=== PATIENT | male | born 1950 | race African-American/Black ===

== ENCOUNTER 2019-10-10 12:29 | Emergency (ER) | payer MEDICARE, SELFPAY ==
[2019-10-10 12:34] VITALS: BP 122/76; PULSE 80; RESP 20; TEMP 36.3; O2SAT 100
--- NOTE | 2019-10-10 12:55 | ED.ALLEREA ---
HPI - Allergic Reaction General Chief complaint: Allergic Reaction Stated complaint: rash Time Seen by Provider: 10/10/19 12:32 Source: patient Mode of arrival: ambulatory Limitations: no limitations History of Present Illness HPI narrative: Patient presents with chief complaint of pruritic rash to his torso and buttocks. Patient states that a few weeks ago he had a large reaction to a new cologne along his neckline and he was prescribed triamcinolone and mupirocin and that rash resolved. Patient states a few days ago he noticed a rash to the front and back of his torso and upper buttocks. Patient states that his did change the sheets on the bed a few days prior to him noticing the rash. He is unsure if she has changed his detergent. Patient denies any involvement of his mouth or throat. Patient denies any chest pain, shortness of breath, pain. Patient states the rash is. It. Patient has no discharge from the areas. Patient states that he is out of triamcinolone and mupirocin. Patient is wondering if we can perform allergy testing in emergency department to see what is causing his symptoms. Patient denies diabetes, cardiac dysfunction, fevers, chills or any other symptoms. Related Data Home Medications Medication Instructions Recorded Confirmed atorvastatin 40 mg tablet 40 mg PO DAILY 08/09/19 fluoxetine 20 mg capsule 40 mg PO DAILY cap 08/09/19 multivitamin 1 tablet PO DAILY 08/09/19 niacin 500 mg tablet 500 mg PO TID tablet 08/09/19 tadalafil 5 mg tablet 5 mg PO DAILY 08/09/19 trazodone 50 mg tablet 50 mg PO .QHS tablet 08/09/19 Allergies Allergy/AdvReac Type Severity Reaction Status Date / Time No Known Allergies Allergy Verified 08/09/19 08:00 Review of Systems Review of Systems: Narrative: CONSTITUTIONAL: Denies fever, chills, or sweats. EYES: Denies visual changes, redness, or discharge. ENT: Denies rhinorrhea, congestion, sore throat, or otalgia. CARDIOVASCULAR: Denies chest pain, palpitations, or edema. RESPIRATORY: Denies cough or dyspnea. GASTROINTESTINAL: Denies abdominal pain, nausea, vomiting, or diarrhea. GENITOURINARY: Denies dysuria or hematuria. SKIN: Reports rash and itching. MUSCULOSKELETAL: Denies back pain, joint pain, or myalgia. NEUROLOGIC: Denies headache, numbness, dizziness, or weakness. PSYCHIATRIC: Denies anxiety or depression. [facility] Social History Social History Smoking status: Current every day smoker Second hand tobacco smoke exposure: Yes Alcohol intake: current Gender identity (if verbalized by the patient): Male Exam Narrative: Exam Narrative: GENERAL: Well-appearing, well-nourished, and in no acute distress. HEAD: Normocephalic, atraumatic. EYES: PERRLA and EOMI. ENT: Nares clear, no rhinorrhea or epistaxis. Mucous membranes moist. Oropharynx without tonsillar hypertrophy exudate or other lesions. Bilateral TMs pearly mendoza nonbulging. No hives, erythema or sign of irritation to oropharynx. NECK: Supple. No adenopathy or masses. ROM intact CHEST: Clear to auscultation. No respiratory distress. No wheezes rales or rhonchi HEART: Regular rate and rhythm. No murmur heard. Normal peripheral pulses. EXTREMITIES: Normal range of motion. No edema. SKIN: Warm, dry, contact dermatitis- red raised papule clusters to the front and back of patients torso and buttocks.Small area noted to right and left leg. No weeping or discharge. No sign of cellulitis or abcess. Excoriations noted to a few areas. NEURO: No focal deficits. Alert and oriented x3. PSYCH: Normal mood and affect. Course Vital Signs Vital signs: Vital Signs Temperature 97.3 F L 10/10/19 12:34 Pulse Rate 80 10/10/19 12:34 Respiratory Rate 20 10/10/19 12:34 Blood Pressure 122/76 10/10/19 12:34 Pulse Oximetry 100 10/10/19 12:34 Temperature 97.3 F L 10/10/19 12:34 Pulse Rate 80 10/10/19 12:34 Respiratory Rate 20
== END 2019-10-10 13:08 | disposition home or self-care (01) ==
PROVIDERS: Emergency Provider Emergency Medicine; PCP Family Medicine
DX: L23.5 Allergic contact dermatitis due to other chemical products (principal); F17.210 Nicotine dependence, cigarettes, uncomplicated
CPT/HCPCS: 99283

== ENCOUNTER 2020-02-28 09:14 | Emergency (ER) | payer MEDICARE, SELFPAY ==
[2020-02-28] VITALS (14 sets, daily range): BP systolic 123–154; BP diastolic 82–105; PULSE 57–118; RESP 11–34; TEMP 36.4; O2SAT 93–100
--- NOTE | ~2020-02-28 | XR_ITS ---
EXAMINATION: XR chest 2V EXAM DATE: 02/28/2020 10:04 INDICATION: Shortness of air. TECHNIQUE: Frontal and lateral projections of the chest obtained and reviewed. There is no prior abrahan dy for comparison. FINDINGS: The lungs are clear. There are no pleural effusions. The cardiomediastinal silhouette is within normal limits. There is no pneumothorax suspected. The bones and soft tissues are unremarkab le. IMPRESSION: Normal chest x-ray exam. Reviewed, dictated and finalized at location B. IMPRESSION: Normal chest x-ray exam.
--- NOTE | ~2020-02-28 | US_ITS ---
EXAMINATION: US venous doppler [facility] DATE: 02/28/2020 12:27 INDICATION: Cramping. Lower limb pain. Shortness of breath and acute pulmonary emboli. TECHNIQUE: Grayscale ultrasound images without and with compression and Doppler ultrasound images of the bilateral lower extremity veins were obtained. COMPARISON: None. FINDINGS: Occlusive appearing noncompressible deep venous thrombosis in the mid to distal right femoral vein ex tending to the popliteal vein and gastrocnemius vein. The visualized portions of right common femoral vein, profunda (deep) femoral vein, proximal femoral vein, posterior tibial veins, peroneal veins an d greater saphenous vein outflow are patent. The visualized portions of left common femoral vein, profunda femoral vein, femoral vein, popliteal v ein, posterior tibial veins, peroneal veins, gastrocnemius vein and greater saphenous vein outflow ar e patent. IMPRESSION: 1. Above and below the knee deep venous thrombosis in the right lower limb extending from the mid fe moral vein through the gastrocnemius vein. 2. No deep venous thrombosis in the left lower limb. Reviewed, dictated and finalized at location A. IMPRESSION: 1. Above and below the knee deep venous thrombosis in the right lower limb ext ending from the mid femoral vein through the gastrocnemius vein. 2. No deep venous thrombosis in the left lower limb.
--- NOTE | ~2020-02-28 | CT_ITS ---
EXAMINATION: CTA chest PE protocol DATE: 02/28/2020 11:51 INDICATION: Shortness of breath. Hyperventilating. Elevated d-dimer. TECHNIQUE: Computed tomography (CT) pulmonary angiogram of the chest was performed with 100 mL Omnipa que-350 intravenous contrast. Additional 3D reconstructions utilizing coronal maximum intensity proje ction (MIP) were performed. Automated exposure control and iterative reconstruction technique were em ployed. The dose-length product was 409.95 mGy-cm. COMPARISON: 10/28/2010 FINDINGS: Excellent contrast opacification of the pulmonary arteries. There is mild streak artifact from dense contrast in the superior vena cava and right atrium. Mild scattered respiratory motion artifact which does not significantly limit evaluation. Sense of bilateral pulmonary emboli. This includes occlusiv e thrombus filling the left lower lobar pulmonary artery with no contrast opacification of any of the more peripheral left lower lobar pulmonary arteries. Additional thrombus involving multiple segmenta l and subsegmental pulmonary arteries of the remaining pulmonary lobes. There is associated right hea rt strain with right ventricular enlargement and leftward bowing of the ventricular septum. There is also tricuspid regurgitation with reflux of contrast into the inferior vena cava and right hepatic ve in. Mild biapical emphysema. Scattered peripheral atelectasis in the dependent aspect of the bilatera l upper and lower lobes. No pneumonia, pulmonary edema or pleural effusion. Overall heart size remain s normal. No pericardial effusion. There is chronic coronary artery calcifications. Thoracic aorta is normal in caliber with no dissection. No pathologically enlarged thoracic lymphadenopathy. Small sli ding-type hiatal hernia densities along side a small parenchymal defect at the upper pole of the left kidney suggesting prior partial nephrectomy. Visualized upper abdomen is otherwise unremarkable. Mil d thoracic spondylosis. IMPRESSION: 1. Extensive pulmonary embolism with high clot burden and secondary right heart strain. Dr. Barrios discussed these findings with Dr. Mariee at 11:58 PM. Reviewed, dictated and finalized at location A.
[2020-02-28 10:24] LABS: Basophils Percent Auto 0.6 % (0.2-1.2); Eosinophils Absolute Auto 0.1 K/mm3 (0-0.3); Hematocrit 48.7 % (42.0-52.0); Hemoglobin 17.2 g/dL (14.0-18.0); Immature Granulocyte Absolute 0.03 K/mm3 (0.00-0.031); Immature Granulocyte Percent A 0.6 % (0-0.5); Lymphocytes Absolute Auto 0.97 K/mm3 (0.9-3.2); Lymphocytes Percent Auto 19.2 % (18.3-44.2); Mean Corpuscular HGB Conc 35.3 g/dl (32-36); Mean Corpuscular Volume 93.5 fl (80-100); Monocytes Absolute Auto 0.7 K/mm3 (0.1-0.6); Monocytes Percent Auto 14.7 % (2.6-8.5); Neutrophils Absolute Auto 3.2 K/mm3 (1.3-6.7); Neutrophils Percent Auto 62.9 % (45.5-73.1); Platelet Count Result 218 k/mm3 (150-375); Red Blood Count 5.21 M/mm3 (4.6-6.20); Red Cell Distribution Width 12.9 % (11.5-14.5)
[2020-02-28 10:37] LABS: Blood Urea Nitrogen 10 mg/dL (9-20); Calcium 9.3 mg/dL (8.4-10.2); Carbon Dioxide 23 mmol/L (22-30); Chloride 104 mmol/L (98-107); Estimated CRCL calculation 66 ml/min; Estimated Glomerular Filt Rate > 60; Glucose 118 mg/dL (75-110); Potassium 4.2 mmol/L (3.4-5.0); Sodium 134 mmol/L (137-145)
[2020-02-28 10:51] LABS: D Dimer 9.74 ug/mL (<0.48)
--- NOTE | 2020-02-28 11:59 | ED.GENADULT ---
HPI - General Adult General Chief complaint: Anxiety Stated complaint: low temperature, hyperventilating Time Seen by Provider: 02/28/20 09:26 History of Present Illness HPI narrative: Patient is a 69-year-old male who presents the ER with shortness of breath. Patient reports that for the last couple weeks he has been short of breath when he gets anxious and upset. But he is also been short of breath with going up stairs over the last day. No chest pain or chest pressure. Reports right lower extremity cramping in the calf starting yesterday. Has history of DVT from a surgery in 2010. No additional complaints. Patient does report that he has some depressed mood. He is currently going through a divorce and his sister of COVID-19 a month ago after coming out of [employer] as a nurse to help with the current pandemic. Talk about this makes him very emotional and tearful. He has seen a counselor and is also on Prozac and has talked to his PCP about this. He has no thoughts of self-harm. Related Data Home Medications Medication Instructions Recorded Confirmed atorvastatin 40 mg tablet 40 mg PO DAILY 08/09/19 multivitamin 1 tablet PO DAILY 08/09/19 niacin 500 mg tablet 500 mg PO TID tablet 08/09/19 tadalafil 5 mg tablet 5 mg PO DAILY 08/09/19 Allergies Allergy/AdvReac Type Severity Reaction Status Date / Time No Known Allergies Allergy Verified 08/09/19 08:00 Review of Systems Review of Systems: All systems reviewed & are unremarkable except as noted in HPI and below Constitutional: Constitutional: Denies chills, Denies fever(s) and Denies weakness ENT: Denies dizziness and Denies sore throat Cardiovascular: Cardiovascular: Denies chest pain, Denies rapid heart rate and Denies radiating jaw, neck or arm pain Respiratory: Respiratory: Denies cough, Reports dyspnea and Denies wheezing Musculoskeletal: Musculoskeletal: Denies arthralgias, Denies joint swelling and Reports muscle cramps Psychiatric: Psychiatric: Reports anxiety, Reports depression, Denies homicidal ideation and Denies suicidal ideation [facility] Past Medical History Medical History (Updated 02/28/20 @ 13:58 by Héctor Mariee MD) Diverticulosis of colon (without mention of hemorrhage) Enlarged prostate without lower urinary tract symptoms (luts) Essential (primary) hypertension Major depressive disorder, recurrent Malignant neoplasm of right kidney, except renal pelvis Mixed hyperlipidemia Other pulmonary embolism and infarction Surgical History Surgical History (Updated 02/28/20 @ 13:55 by Héctor Mariee MD) No pertinent past surgical history Social History Social History Smoking status: Current every day smoker Second hand tobacco smoke exposure: Yes Alcohol intake: current Gender identity (if verbalized by the patient): Male Exam Narrative: Exam Narrative: GENERAL: Well-appearing, well-nourished, and in no acute distress. HEAD: Normocephalic, atraumatic. ENT: Mucous membranes moist. CHEST: Clear to auscultation. No respiratory distress. HEART: Tachycardic and regular. Normal peripheral pulses. ABDOMEN: Soft, nontender, nondistended, normal active bowel sounds. EXTREMITIES: Normal range of motion. No edema. Negative Homans sign. SKIN: Warm, dry, no rash. NEURO: Alert and oriented x3. PSYCH: Anxious and depressed, tearful at times. Normal thought content and good insight. No thoughts of self-harm. Course Course Emergency Course: Dr. Mercado consulted due to large clot burden. Recommends transfer to [facility] where he can have an EKOS procedure. Pt stable. Heparin started. Vital Signs Vital signs: Vital Signs Temperature 97.6 F 02/28/20 09:19 Pulse Rate 117 H 02/28/20 09:19 Respiratory Rate 30 H 02/28/20 09:19 Blood Pressure 150/102 H 02/28/20 09:19 Pulse Oximetry 96 02/28/20 09:19 Temperature 97.6 F 02/28/20 09:19 Pulse Rate
[2020-02-28 12:21] LABS: INR 1.1; Partial Thromboplastin Time 30.2 SECONDS (22.3-36.8)
[2020-02-28 12:28] LABS: NT Pro B Type Natriuretic Pept 2600 PG/ML (5-100); Troponin I 0.021 ng/mL (0.000-0.034)
[2020-02-28] MEDS: HEPARIN SOD/D5W 100 UNITS/ML 25,000 UNITS/250 ML BAG 15 UNITS IV CONT (12:40)
[2020-02-28] MEDS: HEPARIN SODIUM 5,000 UNITS/ML VIAL 7000 UNITS IV PUSH (12:40)
--- NOTE | 2020-02-28 13:36 | PC.NURSE ---
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
--- NOTE | 2020-02-28 13:45 | ECG_ITS ---
Measurements Intervals [place] Rate: 92 P: 50 VT: 144 QRS: 263 QRSD: 95 T: -5 QT: 383 QTc: 475 Interpretive Statements SINUS RHYTHM RIGHT AXIS DEVIATION POOR R WAVE PROGRESSION, ANTERIOR LEADS INFERIOR INFARCT, AGE INDETERMINATE BORDERLINE T WAVE ABNORMALITY- ANTERIOR LEADS ABNORMAL ECG Electronically Signed On 02-28-2020 13:51:55 CDT by Kehinde Call D.O.
--- NOTE | 2020-02-28 13:54 | PM.CNCAR ---
Assessment and Plan Assessment and plan (1) Pulmonary embolism: Code(s): I26.99 - Other pulmonary embolism without acute cor pulmonale Status: Acute Assessment and Plan: Patient has unprovoked PE which is sub massive particularly on your left side which is occlusive as well as right sided PE which is segmental and sub segmental He has right heart strain as suggested by CT as well as EKG findings He is hemodynamically stable except for tachycardia but he is symptomatic and short of breath with minimal activity including even with talking He would benefit from catheter based intervention given right heart strain and submassive PE on the left side. Will continue IV heparin for now and arrange for transfer to [facility] for catheter based intervention with EKOS catheter Given recurrent and unprovoked PE/DVT he would eventually need life long AC (2) DVT (deep venous thrombosis): Code(s): I82.409 - Acute embolism and thrombosis of unspecified deep veins of unspecified lower extremity Status: Acute Assessment and Plan: Continue IV heparin (3) Mixed hyperlipidemia: Code(s): E78.2 - Mixed hyperlipidemia Status: Acute History of Present Illness History of Present Illness Consult date/time: 02/28/20 13:54 69 y/o male with h/o tobacco and alcohol abuse, remote DVT/PE in 2010 (provoked by ankle fracture at that time) who presented with right lower ext pain and shortness of breath. Patient reports bilateral lower ext pain for the last week that improved on the left leg but persisted in the right leg. Over the weekend he started noticing shortness of breath that gradually got worse to the point he decided to seek medical attention. He underwent CT angiogram that showed extensive PEs including Lobar PE on the left side which is occlusive and right segmental and sub segmental PEs on the right side. He also had US of lower ext showing acute DVT of right lower ext. He is hemodynamically stable except for mild tachycardia in 90s. He appears in no distress but does visibly become short of breath while talking. EKG shows normal sinus rhythm with prominent R waves in lead V1V2 with ST changes in lead V1 to V4 consistent with right heart strain. He smokes 3 cigarettes a day. Also drinks alcohol which has increased lately since COVID pandemic. Reason For Visit: low temperature, hyperventilating Review of Systems Review of Systems: All systems reviewed & are unremarkable except as noted in HPI and below Constitutional: Constitutional: Denies fatigue and Denies headache(s) Eyes: Eyes: Denies blurry vision ENT: Reports Normal hearing present and Denies headache(s) Cardiovascular: Cardiovascular: Denies chest pain, Denies diaphoresis, Denies pedal edema, Reports claudication, Denies leg edema, Denies lightheadedness, Denies palpitations and Reports dyspnea Respiratory: Respiratory: Denies cough and Denies dyspnea Gastrointestinal: Gastrointestinal: Denies abdominal pain Musculoskeletal: Musculoskeletal: Denies back pain Neurologic: Reports Normal hearing present and Denies headache(s) Psychiatric: Psychiatric: Denies anxiety Endocrine: Endocrine: Denies fatigue and Denies palpitations [facility] Past Medical History Medical History (Updated 02/28/20 @ 13:58 by Héctor Mariee MD) Diverticulosis of colon (without mention of hemorrhage) Enlarged prostate without lower urinary tract symptoms (luts) Essential (primary) hypertension Major depressive disorder, recurrent Malignant neoplasm of right kidney, except renal pelvis Mixed hyperlipidemia Other pulmonary embolism and infarction Social History Social History Smoking status: Current every day smoker Second hand tobacco smoke exposure: Yes Alcohol intake: current Gender identity (if verbalized by the patient): Male Meds Home Medications and Allergies Home Medications Medic
== END 2020-02-28 15:28 | disposition short-term general hospital (02) ==
PROVIDERS: Emergency Provider Emergency Medicine; PCP Family Medicine
DX: I26.99 Other pulmonary embolism without acute cor pulmonale (principal); I82.411 Acute embolism and thrombosis of right femoral vein; I10 Essential (primary) hypertension; F32.9 Major depressive disorder, single episode, unspecified; E78.2 Mixed hyperlipidemia; F17.210 Nicotine dependence, cigarettes, uncomplicated; K57.90 Diverticulosis of intestine, part unspecified, without perforation or abscess without bleeding; N40.0 Benign prostatic hyperplasia without lower urinary tract symptoms; Z85.528 Personal history of other malignant neoplasm of kidney; F41.9 Anxiety disorder, unspecified; R94.31 Abnormal electrocardiogram [ECG] [EKG]
CPT/HCPCS: 36415; 71046; 71275; 80048; 83880; 84484; 85025; 85380; 85610; 85730; 93005; 93970; 96365; 96366; 99291; J1644; Q9967

== ENCOUNTER 2021-03-28 12:40 | Observation (INO) | payer MEDICARE, SELFPAY ==
[2021-03-28] VITALS (25 sets, daily range): BP systolic 113–175; BP diastolic 55–115; PULSE 69–107; RESP 12–23; TEMP 36.6; O2SAT 99–100
--- NOTE | ~2021-03-28 | XR_ITS ---
EXAMINATION: XR foot RT min 3V DATE: 03/28/2021 13:55 INDICATION: Pain and swelling at the right great toe post injury TECHNIQUE: Dorsoplantar, two oblique and lateral views of the right foot were obtained. COMPARISON: None. FINDINGS: Transverse fracture at the neck of the first proximal phalanx with approximately 3 mm dorsal displace ment. No other acute fractures identified. Old healed fracture at the distal metaphyseal region of th e right fibula. Mild osteoarthritis at the first metatarsophalangeal joint and at the second tarsal m etatarsal joint. IMPRESSION: 1. 3 mm dorsal displacement of an extra-articular fracture at the neck of the right first proximal ph alanx. Reviewed, dictated and finalized at location A. IMPRESSION: 1. 3 mm dorsal displacement of an extra-articular fracture at the neck of the r ight first proximal phalanx.
--- NOTE | ~2021-03-28 | US_ITS ---
EXAMINATION: US venous doppler LE EXAM DATE: 03/28/2021 13:29 INDICATION: Right calf swelling. TECHNIQUE: Multiple grayscale, color flow and Doppler images of the right lower extremity deep venous system obtained and reviewed. Comparison is made to prior examination from 02/28/2020. FINDINGS: RIGHT SIDE Common femoral: --------Thrombosed. Profunda femoral: -------Thrombosed. Femoral: Normal. Popliteal: Thrombosed. Posterior tibial: --------- Normal. Peroneal: Poorly visualized. Gastrocnemius: Normal. Soleus: Not visualized. Greater saphenous: -----Thrombosed. Lesser saphenous: ------ Not visualized. On prior study there was also DVT in the femoral popliteal veins. Previously seen gastrocnemius DVT h as resolved. IMPRESSION: 1. Positive for right common femoral, profunda, popliteal DVT. 2. Greater saphenous SVT. Reviewed, dictated and finalized at location B.
--- NOTE | ~2021-03-28 | CT_ITS ---
EXAMINATION: CTA chest PE protocol EXAM DATE: 03/28/2021 15:47 INDICATION: Tachycardia, RLE DVT, hx PE . History DVT. Renal cell cancer. TECHNIQUE: Spiral CTA of the chest (pulmonary arteries) was performed with 100 cc Omnipaque 350 intr avenous contrast injection. Images were acquired during the pulmonary arterial phase. Coronal maxi mum intensity projection 3D-reconstructions were created by the technologist on dedicated workstation . Axial, coronal and sagittal reformatted images were reviewed. The dose-length product (DLP) for t his examination was 770.98 mGy-cm. The exposure was tailored according to patient size (auto mA exp osure control), and iterative reconstruction (ASIR) was used as additional dose reduction technique. Comparison is made to prior examination from 02/28/2020. FINDINGS: There are scattered small pulmonary emboli bilaterally of varying acute and subacute ages, low clot burden. No evidence of right heart strain. No thoracic aortic dissection. The lungs are leela ar. There are no pleural or pericardial effusions. Tracheobronchial tree is patent. There is no mediastinal, hilar or axillary lymphadenopathy. There is no pneumothorax. Heart normal in size. There is mild coronary arterial calcification, arterial sclerosis. There is 1.5 cm left adrenal matthias noma, slightly smaller right adrenal adenoma. Surgical changes posterior aspect left kidney. Mild th oracic dextroscoliosis. There is small sliding gastroesophageal hiatal hernia. On previous exam there is more extensive bilateral pulmonary emboli, has been significant decrease in clot burden. IMPRESSION: 1. Scattered segmental acute and subacute pulmonary emboli, low clot burden. 2. Adrenal adenomas. 3. Small hiatal hernia. Reviewed, dictated and finalized at location B.
--- NOTE | 2021-03-28 13:41 | ED.LOWEXIN ---
HPI - Extremity Injury (Lower) General Chief Complaint: Extremity Injury, Lower Stated Complaint: RLE swelling Time Seen by Provider: 03/28/21 13:06 Source: patient Mode of arrival: ambulatory Limitations: no limitations History of Present Illness HPI Narrative: This is a 70 year old male that presents to the ER for right lower extremity swelling noted over the last couple of days. Reports he fell down two steps and stubbed his great toe. Reports he had pain and swelling to the area after. This was relieved and then he noted a couple of days ago he started having swelling of the right foot which has now radiated into his calf. Denies fever, chest pain, shortness of breath, or erythema. Related Data Home Medications Medication Instructions Recorded Confirmed multivitamin 1 tablet PO DAILY 08/09/19 12/27/20 Allergies Allergy/AdvReac Type Severity Reaction Status Date / Time No Known Allergies Allergy Verified 12/27/20 09:41 Review of Systems Review of Systems: CONSTITUTIONAL: Denies fever CARDIOVASCULAR: Reports edema. Denies chest pain RESPIRATORY: Denies dyspnea. MUSCULOSKELETAL: Reports joint pain, and myalgia. NEUROLOGIC: Denies numbness All systems reviewed & are unremarkable except as noted in HPI and below PMFSH Past Medical History Medical History (Updated 03/28/21 @ 16:27 by Karin Encarnacion PA-C) Diverticulosis of colon (without mention of hemorrhage) Enlarged prostate without lower urinary tract symptoms (luts) Essential (primary) hypertension Major depressive disorder, recurrent Mixed hyperlipidemia Other pulmonary embolism and infarction Renal cell carcinoma s/p L partial robotic assist Nx on 02/07/2010; T1a; RCCA, Clear Cell, 1.5 cm, Grade II; per urologist MEGGAN needs annual CXR and CMP Surgical History Surgical History No pertinent past surgical history Family History Family History Grandparent Diabetes mellitus Acute myocardial infarction, Onset Age: 84 Sibling Diabetes mellitus Acute myocardial infarction, Onset Age: 40 Other Family history of cardiovascular disease Social History Social History Smoking status: Current some day smoker Second hand tobacco smoke exposure: Yes Alcohol intake: current Gender identity (if verbalized by the patient): Male Exam Narrative: GENERAL: Well-appearing, well-nourished, and in no acute distress. HEAD: Normocephalic, atraumatic. EYES: EOMI. CHEST: Clear to auscultation. No respiratory distress. No wheezes rales or rhonchi HEART: Regular rate and rhythm. No murmur heard. Normal peripheral pulses. EXTREMITIES: Normal range of motion. Mild nonpitting edema to the right calf and into the foot. No erythema or warmth. Normal DP pulses SKIN: Warm, dry, no rash. NEURO: No focal deficits. Alert and oriented x3. PSYCH: Normal mood and affect Course Consultations Consultation #1: Spoke with hospitalist about patient and work-up who accepts admission. Date: 03/28/21 Time: 16:00 Vital Signs Vital signs: Vital Signs Temperature 97.9 F 03/28/21 12:42 Pulse Rate 107 H 03/28/21 12:42 Respiratory Rate 20 03/28/21 12:42 Blood Pressure 113/55 L 03/28/21 12:42 Pulse Oximetry 99 03/28/21 12:42 Temperature 97.9 F 03/28/21 12:42 Pulse Rate 72 03/28/21 16:15 Respiratory Rate 13 03/28/21 16:15 Blood Pressure 175/103 H 03/28/21 16:01 Pulse Oximetry 100 03/28/21 16:15 MDM - Extremity Injury (Lower) MDM Narrative Medical decision making narrative: Patient presents to the ER for right lower extremity edema noted over the last couple of days to a week. He is afebrile and nontoxic-appearing. His vitals are stable. Mildly tachycardic upon arrival, this normalized without intervention. CBC and metabolic panel without concerning findings.
[2021-03-28 14:07] LABS: Basophils Percent Auto 0.3 % (0.2-1.2); Eosinophils Absolute Auto 0.1 K/mm3 (0-0.3); Eosinophils Percent Auto 1.6 % (0-4.4); Hematocrit 41.7 % (42.0-52.0); Hemoglobin 14.2 g/dL (14.0-18.0); Immature Granulocyte Absolute 0.01 K/mm3 (0.00-0.031); Immature Granulocyte Percent A 0.3 % (0-0.5); Lymphocytes Absolute Auto 0.89 K/mm3 (0.9-3.2); Lymphocytes Percent Auto 23.2 % (18.3-44.2); Mean Corpuscular HGB Conc 34.1 g/dl (32-36); Mean Corpuscular Hemoglobin 32.8 pg (26-34); Mean Corpuscular Volume 96.3 fl (80-100); Mean Platelet Volume 8.4 fl (7.4-10.4); Monocytes Absolute Auto 0.5 K/mm3 (0.1-0.6); Neutrophils Absolute Auto 2.4 K/mm3 (1.3-6.7); Neutrophils Percent Auto 62.6 % (45.5-73.1); Platelet Count Result 230 k/mm3 (150-375); Red Blood Count 4.33 M/mm3 (4.6-6.20); Red Cell Distribution Width 14.6 % (11.5-14.5); White Blood Count 3.8 K/mm3 (4.5-10.0)
[2021-03-28 14:19] LABS: INR 0.9; Prothrombin Time 11.6 Seconds (11.1-14.7)
[2021-03-28 14:20] LABS: Partial Thromboplastin Time 25.8 SECONDS (22.3-36.8)
[2021-03-28 14:21] LABS: Anion Gap 9 mmol/L (8-16); Blood Urea Nitrogen 11 mg/dL (9-20); Calcium 8.9 mg/dL (8.4-10.2); Carbon Dioxide 25 mmol/L (22-30); Chloride 102 mmol/L (98-107); Estimated CRCL calculation 71 ml/min; Estimated Glomerular Filt Rate > 60; Glucose 105 mg/dL (65-110); Potassium 3.9 mmol/L (3.4-5.0); Sodium 136 mmol/L (137-145)
[2021-03-28] MEDS: HEPARIN SODIUM 5,000 UNITS/ML VIAL 7000 UNITS IV PUSH (15:09)
[2021-03-28] MEDS: HEPARIN SOD/D5W 100 UNITS/ML 25,000 UNITS/250 ML BAG 15 UNITS IV CONT (15:11)
--- NOTE | 2021-03-28 15:46 | PC.NURSE ---
Pt in ct at this time.
[2021-03-28 21:50] LABS: Partial Thromboplastin Time 192.6 SECONDS (22.3-36.8)
[2021-03-29] VITALS (7 sets, daily range): BP systolic 130–144; BP diastolic 79–94; PULSE 70–90; RESP 12–14; TEMP 36.5–36.9; O2SAT 99–100; BMI 25.4
--- NOTE | 2021-03-29 | ECHO_ITS ---
Patient Info Name: Loco Baker Age: 70 years : 1950 Gender: Male Ht: 71 in Wt: 189 lbs BSA: 2.08 m2 HR: 64 bpm BP: 144 / 94 mmHg Heart Rhythm: Sinus Rhythm Technical Quality: Good Exam Date: 03/29/2021 10:57 AM Exam Location: [facility] Card Pulmonary Patient Status: Outpatient Admit Date: 03/28/2021 Staff Ordering Physician: Michael Servin MD [employer] C[employer] Farmer: Griffin Hagan, NITHINCS, RT Attending Provider: Hazel Ho MD Referring Physician: Gareth BRAND; Exam Type: CA echo doppler color flow Study Info Indications I26.99 - Other pulmonary embolism without acute cor pulmonale Complete two-dimensional, color flow and Doppler transthoracic echocardiogram is performed. Strain analysis performed. Summary 1. Complete two-dimensional, color flow and Doppler transthoracic echocardiogram is performed. 2. Mild left atrial enlargement. 3. Trace amounts of mitral and tricuspid insufficiency. 4. Mild pulmonic insufficiency. 5. Mild LVH with grade 1 diastolic noncompliance and ejection fraction mildly reduced at 45-50%. Left Ventricle Left ventricular chamber dimension is normal. Left ventricular systolic function is mildly reduced, estimated at 45-50%. There is mild concentric increased left ventricular wall thickness. The left ventricular diastolic function is grade I diastolic dysfunction. Right Ventricle Right ventricular chamber dimension is normal. Left Atria Left atrial chamber dimension is mildly enlarged. Right Atria Right atrial chamber dimension is normal. Aortic Valve The aortic valve is normal. Pulmonic Valve The pulmonic valve is normal. There is mild pulmonic regurgitation. Mitral Valve The mitral valve has normal leaflets. There is trace mitral valve regurgitation. Tricuspid Valve The tricuspid valve leaflets are normal. There is trace tricuspid valve regurgitation. Pericardium/Pleural The pericardium appears normal. Aorta The aortic root size at the sinus of Valsalva is normal. Left Ventricular Outflow Tract Name Value Normal LVOT 2D LVOT Diameter 2.1 cm LVOT Doppler LVOT Peak Gradient 3 mmHg LVOT Mean Gradient 1 mmHg LVOT VTI 18 cm LVOT VTI/AV VTI Ratio 0.8 LVOT Stroke Volume 62 ml LVOT CO 4.2 l/min LVOT CI 2.0 l/min/m2 Pulmonic Valve Name Value Normal PV Regurgitation Doppler RI Peak End Diastolic Velocity 97 cm/s Mitral Valve Name Value Normal MV Doppler
--- NOTE | 2021-03-29 01:07 | PM.IMHP ---
H&P: HPI History of Present Illness Date/Time: 03/29/21 01:07 Chief Complaint: THIS IS A 70-YEAR-OLD MALE WITH PAST MEDICAL HISTORY SIGNIFICANT FOR DEPRESSION, DVT IN THE PAST. PATIENT PRESENTED TODAY TO THE EMERGENCY ROOM DUE TO RIGHT CALF SWELLING AND TENDERNESS AND TAUTNESS AROUND THAT AREA IS STATES THAT HE NOTICED THE IS A SOME TIME THE DAY BEFORE AND WANTED TO SEE HIS PRIMARY CARE PHYSICIAN HOWEVER COULD NOT GET AN APPOINTMENT AND DECIDED TO COME TO THE EMERGENCY. PATIENT HAS BEEN IN HIS USUAL STATE OF HEALTH PRIOR TO THESE HE DENIES ANY FEVERS ANY CHILLS ANY RIGORS ANY LONG TRIPS NO SHORTNESS OF BREATH NO COUGH NO SPUTUM PRODUCTION NO HEMOPTYSIS NO CHEST PAIN NO SYNCOPE OR NEAR SYNCOPE NO LIGHTHEADEDNESS NO DIZZINESS NO NAUSEA NO VOMITING NO ABDOMINAL PAIN. PRELIMINARY WORKUP WAS SIGNIFICANT FOR ACUTE DVT PRESENT OF THE RIGHT LOWER EXTREMITY AND ACUTE PE WELL PRESENT ON CTA OF THE CHEST. Review of Systems Review of Systems: RIGHT CALF SWELLING AND TENDERNESS Constitutional: Constitutional: Denies chills, Denies fatigue, Denies fever(s) and Denies malaise Eyes: Eyes: Denies change in vision ENT: Denies dysphagia, Denies vertigo, Denies dizziness, Denies nasal congestion, Denies nasal discharge, Denies nasal obstruction and Denies odynophagia Cardiovascular: Cardiovascular: Denies chest pain at rest, Denies syncope, Denies irregular heart rhythm, Denies lightheadedness, Denies radiating jaw, neck or arm pain, Denies palpitations and Denies orthopnea Respiratory: Respiratory: Denies cough, Denies hemoptysis and Denies dyspnea Gastrointestinal: Gastrointestinal: Denies diarrhea, Denies nausea and Denies vomiting Genitourinary: Genitourinary: Reports no additional male genitourinary complaints Musculoskeletal: Comments: RIGHT CALF SWELLING Integumentary/Breasts: Skin/Breast: Reports system reviewed and no additional complaints, except as docu Neurologic: Reports system reviewed and no additional complaints, except as documented Psychiatric: Psychiatric: Reports no additional psychiatric complaints Endocrine: Endocrine: Reports no additional endocrine complaints Hematologic/Lymphatic: Hematologic/Lymphatic: Reports no additional hematologic/lymphatic complaints Allergic/Immunologic: Allergic/Immunologic: Reports no additional allergic/immunologic complaints PMFSH Past Medical History Medical History (Updated 03/28/21 @ 16:27 by Karin Encarnacion PA-C) Diverticulosis of colon (without mention of hemorrhage) Enlarged prostate without lower urinary tract symptoms (luts) Essential (primary) hypertension Major depressive disorder, recurrent Mixed hyperlipidemia Other pulmonary embolism and infarction Renal cell carcinoma s/p L partial robotic assist Nx on 02/07/2010; T1a; RCCA, Clear Cell, 1.5 cm, Grade II; per urologist MEGGAN needs annual CXR and CMP Surgical History Surgical History No pertinent past surgical history Family History Family History (Updated 03/28/21 @ 20:48 by Jessi Yoder RN) Grandparent Acute myocardial infarction, Onset Age: 84 Sibling Diabetes mellitus Acute myocardial infarction, Onset Age: 40 Sibling COVID Father Pancreatic cancer Other Family history of cardiovascular disease Social History Social History Smoking packs per day: 0.25 Smoking cigarettes per day: 5.0 Years smoked: 20 Smoking pack-years: 5.00 Smoking status: Former smoker Second hand tobacco smoke exposure: Yes Additional smoking assessment comments: former smoker, has recently restarted Alcohol intake: current Drinks per week: 8 Substance use: never Gender identity (if verbalized by the patient): Male Spiritual care concerns: No Meds Home Medications and Allergies Home Medications Medication Instructions Recorded Confirmed Type multivitamin
[2021-03-29 06:03] LABS: Partial Thromboplastin Time 84.3 SECONDS (22.3-36.8)
--- NOTE | 2021-03-29 06:06 | PC.NURSE ---
This patient, Loco Baker, was admitted to IMU Room 200-01. Patient/family oriented to hospital policies and general routines including ID bracelet, bed and alarms, visiting hours, pain management, procedures, bathroom and other care routines, personal items, smoking policy, room service/diet, and visiting hours. Information on how to activate the Rapid Response Team has been discussed. Patient/Family are encouraged to report perceived risks to care and to ask questions if they do not understand what they are told or what they should do.
--- NOTE | 2021-03-29 10:12 | PM.EVENT ---
Event Note Event Note Event Note: Follow-up rounding note Patient doing well he is on room air without any distress. Medical history reviewed with him all questions answered about plan of care possible discharge home later today if remains stable on Eliquis with outpatient follow-up with his PCP.
[2021-03-29] MEDS: MULTIVITAMINS THERAPEUTIC TAB (*BKC) 1 TABLET PO (10:26)
[2021-03-29] MEDS: NIACIN SA 500 MG TABLET PO (10:26)
[2021-03-29] MEDS: FLUoxetine HCL 20 MG CAPSULE 60 MG PO (10:26)
[2021-03-29 10:50] LABS: Partial Thromboplastin Time 78.7 SECONDS (22.3-36.8)
[2021-03-29] MEDS: HEPARIN SOD/D5W 100 UNITS/ML 25,000 UNITS/250 ML BAG 12 UNITS IV CONT (14:16)
--- NOTE | 2021-03-29 15:51 | PM.DS ---
DS: Admitting Diagnosis Admitting Diagnosis (1) Pulmonary embolism: Qualifiers: Pulmonary embolism type: multiple subsegmental (without acute cor pulmonale) Qualified Code(s): I26.94 - Multiple subsegmental pulmonary emboli without acute cor pulmonale Code(s): I26.99 - Other pulmonary embolism without acute cor pulmonale Status: Acute Assessment and Plan: CURRENTLY ON HEPARIN DRIP ECHOCARDIOGRAM IN A.M. CTA REVIEWED DOPPLER REVIEWED (2) Acute deep vein thrombosis (DVT) of right lower extremity: Qualifiers: Affected thrombotic vein of extremity: unspecified lower extremity proximal vein Qualified Code(s): I82.4Y1 - Acute embolism and thrombosis of unspecified deep veins of right proximal lower extremity Code(s): I82.401 - Acute embolism and thrombosis of unspecified deep veins of right lower extremity Status: Acute Assessment and Plan: ON HEPARIN DRIP (3) Benign essential HTN: Code(s): I10 - Essential (primary) hypertension Status: Acute Assessment and Plan: CONTINUE TO MONITOR ON NO MEDS CURRENTLY (4) Renal cell carcinoma: Qualifiers: Laterality: left Qualified Code(s): C64.2 - Malignant neoplasm of left kidney, except renal pelvis Code(s): C64.9 - Malignant neoplasm of unspecified kidney, except renal pelvis Status: Acute Assessment and Plan: STATUS POST PARTIAL LEFT NEPHRECTOMY IN 2009 (5) Essential (primary) hypertension: Code(s): I10 - Essential (primary) hypertension Status: Acute Assessment and Plan: CONTINUE TO MONITOR (6) Severe episode of recurrent major depressive disorder, without psychotic features: Code(s): F33.2 - Major depressive disorder, recurrent severe without psychotic features Status: Acute Assessment and Plan: CONTINUE TRAZODONE AND FLUOXETINE DS: Discharge Diagnosis Discharge Diagnosis (1) Pulmonary embolism: Qualifiers: Pulmonary embolism type: multiple subsegmental (without acute cor pulmonale) Qualified Code(s): I26.94 - Multiple subsegmental pulmonary emboli without acute cor pulmonale Code(s): I26.99 - Other pulmonary embolism without acute cor pulmonale Status: Acute (2) Acute deep vein thrombosis (DVT) of right lower extremity: Qualifiers: Affected thrombotic vein of extremity: unspecified lower extremity proximal vein Qualified Code(s): I82.4Y1 - Acute embolism and thrombosis of unspecified deep veins of right proximal lower extremity Code(s): I82.401 - Acute embolism and thrombosis of unspecified deep veins of right lower extremity Status: Acute (3) Benign essential HTN: Code(s): I10 - Essential (primary) hypertension Status: Acute (4) Major depressive disorder, recurrent: Qualifiers: Active/Remission status: remission status unspecified Qualified Code(s): F33.9 - Major depressive disorder, recurrent, unspecified Code(s): F33.9 - Major depressive disorder, recurrent, unspecified Status: Acute (5) Mixed hyperlipidemia: Code(s): E78.2 - Mixed hyperlipidemia Status: Acute DS: Summary Hospital Course Reason for hospitalization: RIGHT CALF SWELLING AND TENDERNESS Hospital Course: 70-year-old male with history of right lower extremity DVT x2 and history of PE presents to the emergency room with chief complaint of right lower extremity swelling and tenderness. He subsequently found to have extensive DVT the right lower extremity and multiple small pulmonary emboli. No heart strain and no hypoxia associated with findings. Patient was placed on heparin drip and then successfully transition to OAC with Eliquis after right lower extremity swelling and pain improved. He was counseled extensively on bleeding precautions and when to return to the ER. Additionally, he reports that he is able to afford this medication despite significant cost.
[2021-03-29] MEDS: APIXABAN 5 MG TABLET 10 MG PO (17:04)
== END 2021-03-29 17:14 | disposition home or self-care (01) ==
LOC: ANHED 16:27 → ANHIMU 18:13
PROVIDERS: Physician Assistant; Admitting Provider Hospitalist; Emergency Provider Emergency Medicine; PCP Family Medicine; Visit Provider Hospitalist
DX: I26.99 Other pulmonary embolism without acute cor pulmonale (principal); I82.411 Acute embolism and thrombosis of right femoral vein; I82.431 Acute embolism and thrombosis of right popliteal vein; I82.491 Acute embolism and thrombosis of other specified deep vein of right lower extremity; I82.811 Embolism and thrombosis of superficial veins of right lower extremity; S92.411A Displaced fracture of proximal phalanx of right great toe, initial encounter for closed fracture; I10 Essential (primary) hypertension; K57.30 Diverticulosis of large intestine without perforation or abscess without bleeding; N40.0 Benign prostatic hyperplasia without lower urinary tract symptoms; E78.5 Hyperlipidemia, unspecified; W10.9XXA Fall (on) (from) unspecified stairs and steps, initial encounter; F33.2 Major depressive disorder, recurrent severe without psychotic features; Z86.711 Personal history of pulmonary embolism; Z85.528 Personal history of other malignant neoplasm of kidney; Z87.891 Personal history of nicotine dependence; Z90.5 Acquired absence of kidney
CPT/HCPCS: 36415; 71275; 73630; 80048; 85025; 85610; 85730; 93306; 93971; 96365; 96366; 99291; A9270; G0378; J1644; Q9967